=== PATIENT | male | born 1985 | race African-American/Black ===

== ENCOUNTER 2019-07-06 12:15 | Emergency (ER) | payer BC ==
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
== END 2019-07-06 14:18 | disposition home or self-care (01) ==
LOC: ERS 12:15
DX: S50.12XA Contusion of left forearm, initial encounter (principal); V89.2XXA Person injured in unspecified motor-vehicle accident, traffic, initial encounter